=== PATIENT | female | born 1950 | race Caucasian/White ===

== ENCOUNTER → 2018-04-20 11:06 | Outpatient (CLI) | payer MEDICARE, BC, SELFPAY ==
--- NOTE | 2018-04-20 | DI.MG.S_ITS ---
BILATERAL DIGITAL SCREENING MAMMOGRAM 3D/2D WITH CAD: 04/20/2018 CLINICAL: Routine screening. Family history of breast cancer. Comparison is made to exams dated: 01/11/2014 mammogram - [facility], 04/02/2017 mammogram [facility], and 09/22/2012 mammogram - [facility]. The tissue of both breasts is heterogeneously dense. This may lower the sensitivity of mammography. Current study was also evaluated with a Computer Aided Detection (CAD) system. There is an asymmetry with calcifications in the right breast posterior depth outer region seen on the craniocaudal view only. No other significant masses, calcifications, or other findings are seen in either breast. IMPRESSION: INCOMPLETE: NEEDS ADDITIONAL IMAGING EVALUATION The asymmetry in the right breast is indeterminate. Magnification views as well as additional views with possible ultrasound are recommended. This exam was interpreted at Station ID: [id number]. NOTE: For mammograms, a report in lay terms will be sent to the patient. Approximately 15% of breast malignancies will not be visualized mammographically. In the management of a palpable breast mass, a negative mammogram must not discourage biopsy of a clinically suspicious lesion. Electronically Signed By: Ambrosio Saravia M.D. ecl/:04/21/2018 00:47:53 letter sent: Additional Imaging Needed ACR BI-RADS Category 0: Incomplete 3340F
== END ==
PROVIDERS: PCP Internal Medicine; Visit Provider Internal Medicine
DX: Z12.31 Encounter for screening mammogram for malignant neoplasm of breast (principal); Z80.3 Family history of malignant neoplasm of breast
CPT/HCPCS: 77063; 77067

== ENCOUNTER → 2018-05-09 09:18 | Outpatient (CLI) | payer MEDICARE, BC, SELFPAY ==
--- NOTE | 2018-05-09 | DI.MG.S_ITS ---
UNILATERAL RIGHT DIGITAL DIAGNOSTIC MAMMOGRAM 3D/2D WITH ADDITIONAL VIEWS: 05/09/2018 CLINICAL: Additional evaluation requested from prior study. Family history of breast cancer. Comparison is made to exams dated: 04/20/2018 mammogram, 04/02/2017 mammogram - [facility], and 01/11/2014 mammogram - [facility]. The tissue of the right breast is heterogeneously dense. This may lower the sensitivity of mammography. The asymmetry with calcifications in the right breast posterior depth outer region seen on the craniocaudal view only is not seen in additional views. No other significant masses or calcifications are seen in the breast. IMPRESSION: There is no mammographic evidence of malignancy. A 1 year screening mammogram is recommended. This exam was interpreted at Station ID: [id number]. NOTE: For mammograms, a report in lay terms will be sent to the patient. Approximately 15% of breast malignancies will not be visualized mammographically. In the management of a palpable breast mass, a negative mammogram must not discourage biopsy of a clinically suspicious lesion. Electronically Signed By: Brigitte Rios M.D. lk/:05/09/2018 10:05:45 letter sent: Normal Exam ACR BI-RADS Category 2: Benign Finding(s) 3342F
== END ==
PROVIDERS: PCP Internal Medicine; Visit Provider Internal Medicine
DX: R92.1 Mammographic calcification found on diagnostic imaging of breast (principal); Z80.3 Family history of malignant neoplasm of breast
CPT/HCPCS: 77065; G0279

== ENCOUNTER → 2019-06-21 09:48 | Outpatient (CLI) | payer MEDICARE, BC, SELFPAY ==
--- NOTE | 2019-06-21 | DI.MG.S_ITS ---
BILATERAL DIGITAL SCREENING MAMMOGRAM 3D/2D WITH CAD: 06/21/2019 CLINICAL: Routine screening. Family history of breast cancer. Comparison is made to exams dated: 05/09/2018 mammogram, 04/20/2018 mammogram, and 04/02/2017 mammogram - [facility]. The tissue of both breasts is heterogeneously dense. This may lower the sensitivity of mammography. Current study was also evaluated with a Computer Aided Detection (CAD) system. No significant masses, calcifications, or other findings are seen in either breast. There has been no significant interval change. IMPRESSION: NEGATIVE There is no mammographic evidence of malignancy. A 1 year screening mammogram is recommended. This exam was interpreted at Station ID: [id number]. NOTE: For mammograms, a report in lay terms will be sent to the patient. Approximately 15% of breast malignancies will not be visualized mammographically. In the management of a palpable breast mass, a negative mammogram must not discourage biopsy of a clinically suspicious lesion. Electronically Signed By: Álvaro manuel/carmen:06/21/2019 11:44:36 letter sent: Normal Exam ACR BI-RADS Category 1: Negative 3341F
== END ==
PROVIDERS: PCP Internal Medicine; Visit Provider Internal Medicine
DX: Z12.31 Encounter for screening mammogram for malignant neoplasm of breast (principal); M81.0 Age-related osteoporosis without current pathological fracture; Z78.0 Asymptomatic menopausal state; Z90.722 Acquired absence of ovaries, bilateral
CPT/HCPCS: 77063; 77067; 77080

== ENCOUNTER → 2019-08-01 09:33 | Outpatient (CLI) | payer MEDICARE, BC, SELFPAY ==
[2019-08-01 11:15] LABS: Calcium 10.3 mg/dL (8.4-10.2)
[2019-08-01 11:33] LABS: Vitamin D 25 Hydroxy (D3) 74.8 ng/mL (30.0-100.0)
== END ==
PROVIDERS: PCP Internal Medicine; Visit Provider Ophthalmology
DX: Z01.84 Encounter for antibody response examination (principal); E55.9 Vitamin D deficiency, unspecified
CPT/HCPCS: 36415; 82306; 82310; 86787

== ENCOUNTER → 2020-02-26 07:32 | Outpatient (CLI) | payer MEDICARE, BC, SELFPAY ==
[2020-02-26 08:44] LABS: Aspartate Aminotransferase 26 IU/L (14-36); BUN Creatinine Ratio 24.4 (6-22); Blood Urea Nitrogen 19 mg/dL (7-17); Calcium 10.1 mg/dL (8.4-10.2); Carbon Dioxide 29 mmol/L (22-32); Chloride 102 mmol/L (98-107); Cholesterol 217 mg/dL (140-199); Estimated Glomerular Filt Rate > 60.0 mL/min (>60); Glucose 125 mg/dL (80-110); HDL Cholesterol 63 mg/dL (40-60); HEMOLYSIS < 15 (0-50); LDL Cholesterol Calculated 138 mg/dL (<100); Sodium 138 mmol/L (137-145); Triglycerides 78 mg/dL (35-150)
[2020-02-26 09:15] LABS: TSH w/ Reflex to FT4 4.24 uIU/mL (0.47-4.68)
== END ==
PROVIDERS: PCP Internal Medicine; Referring Provider Internal Medicine; Visit Provider Internal Medicine
DX: E78.2 Mixed hyperlipidemia (principal); I10 Essential (primary) hypertension; M81.0 Age-related osteoporosis without current pathological fracture
CPT/HCPCS: 36415; 80048; 80061; 84443; 84450

== ENCOUNTER → 2020-06-25 10:00 | Outpatient (CLI) | payer MEDICARE, BC, SELFPAY ==
--- NOTE | 2020-06-25 10:03 | DI.MG.S_ITS ---
BILATERAL DIGITAL SCREENING MAMMOGRAM 3D/2D WITH CAD: 06/25/2020 CLINICAL: Routine screening. Family history of breast cancer. Comparison is made to exams dated: 06/21/2019 mammogram, 04/20/2018 mammogram, 04/02/2017 mammogram, and 05/09/2018 mammogram - [facility]. The tissue of both breasts is heterogeneously dense. This may lower the sensitivity of mammography. Current study was also evaluated with a Computer Aided Detection (CAD) system. No significant masses, calcifications, or other findings are seen in either breast. There has been no significant interval change. IMPRESSION: NEGATIVE There is no mammographic evidence of malignancy. A 1 year screening mammogram is recommended. This exam was interpreted at Station ID: [id number]. NOTE: For mammograms, a report in lay terms will be sent to the patient. Approximately 15% of breast malignancies will not be visualized mammographically. In the management of a palpable breast mass, a negative mammogram must not discourage biopsy of a clinically suspicious lesion. Electronically Signed By: Fredo pelaez/carmen:06/25/2020 12:36:14 letter sent: Normal Exam ACR BI-RADS Category 1: Negative 3341F
== END ==
PROVIDERS: PCP Internal Medicine; Referring Provider Internal Medicine; Visit Provider Internal Medicine
DX: Z12.31 Encounter for screening mammogram for malignant neoplasm of breast (principal); Z80.3 Family history of malignant neoplasm of breast
CPT/HCPCS: 77063; 77067

== ENCOUNTER → 2021-01-17 18:54 | Outpatient (ROUT) | payer MEDICARE, BC, SELFPAY ==
[2021-01-17 19:32] LABS: Aspartate Aminotransferase 25 IU/L (14-36); BUN Creatinine Ratio 22.5 (6-22); Blood Urea Nitrogen 20 mg/dL (7-17); Calcium 9.9 mg/dL (8.4-10.2); Carbon Dioxide 29 mmol/L (22-32); Chloride 105 mmol/L (98-107); Cholesterol 232 mg/dL (140-199); Estimated Glomerular Filt Rate > 60.0 mL/min (>60); Glucose 125 mg/dL (80-110); HDL Cholesterol 80 mg/dL (40-60); HEMOLYSIS < 15 (0-50); LDL Cholesterol Calculated 135 mg/dL (<100); Potassium 3.9 mmol/L (3.4-5.1); Sodium 142 mmol/L (137-145); Triglycerides 83 mg/dL (35-150)
== END ==
PROVIDERS: PCP Internal Medicine; Visit Provider Internal Medicine
DX: I10 Essential (primary) hypertension (principal); E78.2 Mixed hyperlipidemia
CPT/HCPCS: 80048; 80061; 84450

== ENCOUNTER → 2021-07-18 10:15 | Outpatient (CLI) | payer MEDICARE, BC, SELFPAY ==
--- NOTE | 2021-07-18 | DI.MG.S_ITS ---
BILATERAL DIGITAL SCREENING MAMMOGRAM 3D/2D WITH CAD: 07/18/2021 CLINICAL: Routine screening. Family history of breast cancer. Comparison is made to exams dated: 06/25/2020 mammogram, 06/21/2019 mammogram, and 04/20/2018 mammogram - [facility]. There are scattered fibroglandular elements in both breasts. Current study was also evaluated with a Computer Aided Detection (CAD) system. No significant masses, calcifications, or other findings are seen in either breast. There has been no significant interval change. IMPRESSION: NEGATIVE There is no mammographic evidence of malignancy. A 1 year screening mammogram is recommended. This exam was interpreted at Station ID: [id number]. NOTE: For mammograms, a report in lay terms will be sent to the patient. Approximately 15% of breast malignancies will not be visualized mammographically. In the management of a palpable breast mass, a negative mammogram must not discourage biopsy of a clinically suspicious lesion. Electronically Signed By: Lexie hernandez/carmen:07/18/2021 16:56:16 letter sent: Normal Exam ACR BI-RADS Category 1: Negative 3341F
--- NOTE | 2021-07-18 | DI.RAD.S_ITS ---
PROCEDURE: XR DEXA AXIAL SKELETON INDICATIONS: ROUTINE SCREENING COMPARISON: [facility], CR, XR DEXA AXIAL SKELETON, 06/21/2019, 10:34. FINDINGS: This blank DEXA report has been sent in error by the PACS system. The correct and complete report will be forthcoming in 1-2 days. Thank you for your patience and understanding. Dictated by: Phyllis Alfred MD, PhD on 07/18/2021 at 16:10 Approved by: Phyllis Alfred MD, PhD on 07/18/2021 at 16:10
== END ==
PROVIDERS: PCP Physician Assistant; Referring Provider Internal Medicine; Visit Provider Internal Medicine
DX: Z12.31 Encounter for screening mammogram for malignant neoplasm of breast (principal); Z80.3 Family history of malignant neoplasm of breast; Z13.820 Encounter for screening for osteoporosis; M81.0 Age-related osteoporosis without current pathological fracture; Z78.0 Asymptomatic menopausal state; Z90.722 Acquired absence of ovaries, bilateral
CPT/HCPCS: 77063; 77067; 77080

== ENCOUNTER → 2022-09-07 15:57 | Outpatient (CLI) | payer MEDICARE, BC, SELFPAY ==
--- NOTE | 2022-09-07 16:00 | DI.MG.S_ITS ---
BILATERAL DIGITAL SCREENING MAMMOGRAM 3D/2D WITH CAD: 09/07/2022 CLINICAL: Routine screening. Family history of breast cancer. Comparison is made to exams dated: 07/18/2021 mammogram, 06/25/2020 mammogram, and 06/21/2019 mammogram - [facility]. There are scattered areas of fibroglandular density in both breasts (category b / 25%-50% glandular tissue). Current study was also evaluated with a Computer Aided Detection (CAD) system. No significant masses, calcifications, or other findings are seen in either breast. There has been no significant interval change. IMPRESSION: NEGATIVE There is no mammographic evidence of malignancy. A 1 year screening mammogram is recommended. Based on the Tyrer Cuzick model (a risk assessment model) the patient's lifetime risk is 12.3% and her 10 year risk is 10.1%. According to the ACR, ACS, and NCCN guidelines, an annual breast MRI exam along with mammogram is recommended if the patient's lifetime risk is 20% or greater. This exam was interpreted at Station ID: [id number]. NOTE: For mammograms, a report in lay terms will be sent to the patient. Approximately 15% of breast malignancies will not be visualized mammographically. In the management of a palpable breast mass, a negative mammogram must not discourage biopsy of a clinically suspicious lesion. Electronically Signed By: Álvaro manuel/carmen:09/08/2022 07:55:03 letter sent: Normal Exam ACR BI-RADS Category 1: Negative 3341F
== END ==
PROVIDERS: PCP Internal Medicine; Referring Provider Internal Medicine; Visit Provider Internal Medicine
DX: Z12.31 Encounter for screening mammogram for malignant neoplasm of breast (principal); Z80.3 Family history of malignant neoplasm of breast
CPT/HCPCS: 77063; 77067

== ENCOUNTER → 2022-11-16 08:29 | Outpatient (CLI) | payer MEDICARE, BC, SELFPAY ==
[2022-11-16 09:12] LABS: Hemoglobin 13.1 g/dL (12.0-16.0); Mean Corpuscular HGB Conc 33.5 % (30-36); Mean Corpuscular Hemoglobin 31.4 PG (26-34); Mean Corpuscular Volume 93.7 fL (80-100); Platelet Count 317 X10^3/uL (150-400); Red Blood Cell Count 4.16 X10^6/uL (4.0-5.2); White Blood Cell Count 4.5 X10^3/uL (4.5-11.0)
[2022-11-16 09:43] LABS: Alanine Aminotransferase 25 IU/L (<35); Albumin 4.1 g/dL (3.5-5.0); Albumin Globulin Ratio 1.3 (1.0-2.8); Alkaline Phosphatase 90 U/L (38-126); Aspartate Aminotransferase 24 IU/L (14-36); BUN Creatinine Ratio 26.1 (6-22); Bilirubin Total 0.5 mg/dL (0.2-1.3); Blood Urea Nitrogen 18 mg/dL (7-17); Calcium 9.1 mg/dL (8.4-10.2); Carbon Dioxide 27 mmol/L (22-32); Chloride 103 mmol/L (98-107); Cholesterol 235 mg/dL (140-199); Estimated Glomerular Filt Rate > 60 mL/min (>60); Globulin 3.2 g/dL (1.7-4.1); Glucose 127 mg/dL (80-110); HDL Cholesterol 58 mg/dL (40-60); HEMOLYSIS < 15 (0-50); LDL Cholesterol Calculated 160 mg/dL (<100); Potassium 4.1 mmol/L (3.4-5.1); Sodium 137 mmol/L (137-145); Total Protein 7.3 g/dL (6.3-8.2); Triglycerides 83 mg/dL (35-150)
[2022-11-16 09:59] LABS: Vitamin D 25 Hydroxy (D3) 44.7 ng/mL (30.0-100.0)
[2022-11-16 10:13] LABS: TSH w/ Reflex to FT4 3.99 uIU/mL (0.47-4.68)
[2022-11-16 10:31] LABS: Vitamin B12 339 pg/mL (239-931)
== END ==
PROVIDERS: PCP Internal Medicine; Referring Provider Internal Medicine; Visit Provider Internal Medicine
DX: E55.9 Vitamin D deficiency, unspecified (principal); E78.2 Mixed hyperlipidemia; I10 Essential (primary) hypertension; M81.0 Age-related osteoporosis without current pathological fracture; E53.8 Deficiency of other specified B group vitamins
CPT/HCPCS: 36415; 80053; 80061; 82306; 82607; 84443; 85027

== ENCOUNTER 2022-12-29 06:39 | Day surgery (SDC) | payer MEDICARE, OTHER, SELFPAY ==
[2022-12-29 07:07] VITALS: BP 149/85; PULSE 69; RESP 17; TEMP 36.6; O2SAT 99; BMI 25.4
[2022-12-29] MEDS: LACTATED RINGERS 1,000 ML 120 ML IV (07:18)
--- NOTE | 2022-12-29 07:45 | PM.HP.1 ---
History of Present Illness History of Present Illness Date Patient Seen: 12/29/22 Time Patient Seen: 07:45 Chief complaint: Colonoscopy Narrative: The patient presents for colorectal screening. Personal history of colonic polyps. Last colonoscopy approximately 5 years ago. No personal or first-degree family history of colon cancer. On further history denies any recent gastrointestinal symptoms. No nausea, vomiting, abdominal pain, loss of appetite, unexplained weight loss, change in bowel habits, or blood per rectum. [facility] Medical History (Updated 11/11/22 @ 09:48 by Ernesto Stallings MD) Age-related osteoporosis without current pathological fracture Allergic rhinitis Cataracts, bilateral (~2019) Chicken pox Colon polyps (~2007) Essential hypertension Fibroids (~2013) History of colonic polyps Human papilloma virus (~2009) Measles Mixed hyperlipidemia Retinal tear (~2019) Skin cancer (~2014) Surgical History Anesthesia History of hysterectomy (~2019) Family History Father Diabetes mellitus History of heart disease Hypertension Hyperlipidemia Mother Hyperlipidemia Hypertension Alzheimer's disease Brother Diabetes mellitus Hyperlipidemia Hypertension Mental health problem Brother Diabetes mellitus Hyperlipidemia Hypertension Brother Hyperlipidemia Sister Breast cancer Diabetes mellitus Hyperlipidemia Hypertension Social History details: Partner (Jeanmarie), , 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, retired dental hygienist household members: spouse and friend(s) Smoking Status: Never smoker alcohol intake: current Meds Home Medications and Allergies Home Medications Medication Instructions Recorded Confirmed Type alendronate 70 mg tablet 70 mg PO QWEEK #12 tabs 11/11/22 12/29/22 Rx atorvastatin 10 mg tablet 10 mg PO DAILY #90 tabs 11/11/22 12/29/22 Rx losartan 50 mg tablet 50 mg PO DAILY #90 tabs 11/11/22 12/29/22 Rx Allergies Allergy/AdvReac Type Severity Reaction Status Date / Time Sulfa (Sulfonamide Allergy Severe Rash Verified 11/11/22 09:15 Antibiotics) Exam Vital Signs (past 8 hours): - 12/29/22 07:07 Temperature 98 F Pulse Rate 69 Respiratory Rate 17 Blood Pressure 149/85 H Pulse Oximetry 99 Oxygen Delivery Method Room Air Oxygen Delivery Method Room Air Narrative Exam Narrative: General adult woman alert oriented no acute distress Assessment & Plan Assessment & Plan narrative: The patient requires colorectal screening and colonoscopy is recommended. Technical details were discussed. Risks, benefits, alternatives explained. Risks including but not limited to myocardial infarction, aspiration, bleeding, pain, missed lesion, incomplete examination, need for further radiographic studies, colonic perforation, and need for major abdominal surgery were discussed. All questions were answered to their satisfaction, and they are in agreement with this plan.
[2022-12-29 08:09] VITALS: BP 116/75; PULSE 64; RESP 18; TEMP 36.4; O2SAT 96
[2022-12-29 08:14] VITALS: BP 112/71; PULSE 61; RESP 20; O2SAT 95
--- NOTE | 2022-12-29 08:17 | PM.OP.COLON ---
Operative Date/Time/Diagnoses Date of procedure: 12/29/22 Time of procedure: 08:17 Pre-op diagnosis: Personal history of polyps Post-op diagnosis: same Procedure & Clinicians Study performed: Colonoscopy Same procedure as scheduled: Yes Indications: Personal history of polyps Colorectal screening Surgeon: Jostin Augustin Procedure Notes Procedure in detail: The history and physical was performed/updated and the patient is ASA class is 2. The procedure was discussed in detail with the patient. Potential risks complications including infection, bleeding, missed diagnosis, perforation, need for surgery, and were explained. Their questions were answered and informed consent was obtained. Patient was brought to the procedure room and placed standard monitoring equipment. The patient's vital signs were monitored continuously throughout the entire procedure. Prior to starting time-out was performed. The patient was placed in the left lateral recumbent position. Procedural sedation was administered by anesthesia. Examination began with a thorough inspection of the perianal area there was no evidence of fissures, fistulae, external hemorrhoids or cutaneous malignancy. The colonoscopy scope was then placed into the anal canal and was advanced to the cecum, which was identified by the ileocecal valve, the appendiceal orifice and the confluence of the taenia. The scope was then slowly withdrawn examining colon thoroughly in all directions, irrigating it of any residual stool. Colon is free of masses and polyps. Moderate diverticulosis of sigmoid colon Internal hemorrhoids on retroflexion within the rectum The patient tolerated the procedure well. They will be discharged once criteria are met. The prep was of good/excellent quality. The withdrawl time was 6 minutes. Specimen(s): none sent Impression: Normal colonoscopy Post-procedure Recommendations: High fiber diet Plan for aftercare: No further colonoscopy is likely necessary Disposition: same day surgery
[2022-12-29 08:20] VITALS: BP 124/80; PULSE 691; RESP 5; O2SAT 96
[2022-12-29 08:22] VITALS: BP 124/81; PULSE 65; RESP 14; TEMP 36.2; O2SAT 97
== END 2022-12-29 08:35 | disposition home or self-care (01) ==
PROVIDERS: PCP Internal Medicine; Referring Provider Surgery; Visit Provider Surgery
PROC: 0DJD8ZZ Inspection of Lower Intestinal Tract, Via Natural or Artificial Opening Endoscopic (ICD-10-PCS; CPT 45378; principal; 2022-12-29 07:45)
DX: Z12.11 Encounter for screening for malignant neoplasm of colon (principal); Z86.010 Personal history of colon polyps; K57.30 Diverticulosis of large intestine without perforation or abscess without bleeding; K64.8 Other hemorrhoids
CPT/HCPCS: G0105; J2704

== ENCOUNTER → 2023-09-08 08:14 | Outpatient (CLI) | payer MEDICARE, OTHER, SELFPAY ==
--- NOTE | 2023-09-08 08:16 | DI.MG.S_ITS ---
BILATERAL DIGITAL SCREENING MAMMOGRAM 3D/2D WITH CAD: 09/08/2023 CLINICAL: Routine screening. Family history of breast cancer. Comparison is made to exams dated: 09/07/2022 mammogram, 07/18/2021 mammogram, 06/25/2020 mammogram, and 06/21/2019 mammogram - [facility]. There are scattered areas of fibroglandular density in both breasts (category b / 25%-50% glandular tissue). Current study was also evaluated with a Computer Aided Detection (CAD) system. No significant masses, calcifications, or other findings are seen in either breast. There has been no significant interval change. IMPRESSION: NEGATIVE There is no mammographic evidence of malignancy. A 1 year screening mammogram is recommended. Based on the Tyrer Cuzick model (a risk assessment model) the patient's lifetime risk is 11.5% and her 10 year risk is 10.4%. According to the ACR, ACS, and NCCN guidelines, an annual breast MRI exam along with mammogram is recommended if the patient's lifetime risk is 20% or greater. This exam was interpreted at Station ID: [id number]. NOTE: For mammograms, a report in lay terms will be sent to the patient. Approximately 15% of breast malignancies will not be visualized mammographically. In the management of a palpable breast mass, a negative mammogram must not discourage biopsy of a clinically suspicious lesion. Electronically Signed By: Roger watts/carmen:09/08/2023 13:58:26 letter sent: Normal Exam ACR BI-RADS Category 1: Negative 3341F
== END ==
LOC: MAMMO 08:15
PROVIDERS: PCP Internal Medicine; Referring Provider Internal Medicine; Visit Provider Internal Medicine
DX: Z12.31 Encounter for screening mammogram for malignant neoplasm of breast (principal); R92.323 Mammographic fibroglandular density, bilateral breasts
CPT/HCPCS: 77063; 77067

== ENCOUNTER → 2023-11-15 09:40 | Outpatient (CLI) | payer MEDICARE, OTHER, SELFPAY ==
[2023-11-15 11:14] LABS: Hemoglobin A1C% w Est Avg Glu 7.4 % (4.0-6.0)
[2023-11-15 11:55] LABS: Aspartate Aminotransferase 52 IU/L (14-36); BUN Creatinine Ratio 15.5 (6-22); Blood Urea Nitrogen 11 mg/dL (7-17); Calcium 9.2 mg/dL (8.4-10.2); Carbon Dioxide 29 mmol/L (22-32); Chloride 106 mmol/L (98-107); Cholesterol 188 mg/dL (140-199); Estimated Glomerular Filt Rate > 60 mL/min (>60); Glucose 124 mg/dL (80-110); HDL Cholesterol 61 mg/dL (40-60); HEMOLYSIS < 15 (0-50); LDL Cholesterol Calculated 110 mg/dL (<100); Potassium 4.1 mmol/L (3.4-5.1); Sodium 140 mmol/L (137-145); Triglycerides 84 mg/dL (35-150)
== END ==
PROVIDERS: PCP Internal Medicine; Referring Provider Internal Medicine; Visit Provider Internal Medicine
DX: R73.01 Impaired fasting glucose (principal); I10 Essential (primary) hypertension; E78.2 Mixed hyperlipidemia
CPT/HCPCS: 36415; 80048; 80061; 83036; 84450

== ENCOUNTER → 2024-04-14 07:07 | Outpatient (CLI) | payer MEDICARE, OTHER, SELFPAY ==
[2024-04-14 07:56] LABS: Hemoglobin A1C% w Est Avg Glu 7.2 % (4.0-6.0)
[2024-04-14 08:26] LABS: Alanine Aminotransferase 30 IU/L (<35); Albumin 4.3 g/dL (3.5-5.0); Albumin Globulin Ratio 1.7 (1.0-2.8); Alkaline Phosphatase 99 U/L (38-126); Aspartate Aminotransferase 27 IU/L (14-36); Bilirubin Total 0.7 mg/dL (0.2-1.3); Bilirubin Unconjugated 0.3 mg/dL (0.0-1.1); Globulin 2.5 g/dL (1.7-4.1); Glucose 170 mg/dL (80-110); HEMOLYSIS < 15 (0-50); Total Protein 6.8 g/dL (6.3-8.2)
== END ==
PROVIDERS: PCP Internal Medicine; Referring Provider Internal Medicine; Visit Provider Internal Medicine
DX: E11.69 Type 2 diabetes mellitus with other specified complication (principal); E78.5 Hyperlipidemia, unspecified; R79.89 Other specified abnormal findings of blood chemistry
CPT/HCPCS: 36415; 80076; 82947; 83036

== ENCOUNTER → 2024-06-28 09:45 | Outpatient (CLI) | payer MEDICARE, OTHER, SELFPAY ==
--- NOTE | 2024-06-28 10:04 | DIAB.MNT ---
Initial Diabetes Medical Nutrition Therapy Assessment Name: Karo Noonan Date: 06/28/24 Time: Dx: Type II Diabetes Provider: Chandrakant Preferred Learning Style: Doing/Listening/Reading/Watching Cristin presents for initial visit. Newly diagnosed with T2Dm in 11/2023.Endorses FH of T2Dm with two siblings and her father. States she has been trying to avoid this diagnosis for 20 years, but is not surprised by recent hgA1c. Reports being quite active and eating very balanced. Recently started Metformin 500mg BID. No side effects. Interested in checking her BG for symptom numbers. States she sometimes feels a little unbalanced or foggy since starting Metformin. States a little cheese or snack helps. Mildly low BG? Endorses added stress over the last few years with partner having dementia. Tearful today about it. Manages stress with walking. Diet Recall: 6a: coffee with cream no sugar 8a: plain vietnamese yogurt with half banana 12p: half tuna sandwich on croissant OR cottage cheese with veg and balsamic glaze 2p: 2 chocolate (4g CHO) with cheese OR 1 satsuma orange 5p: protein with 1/2c potatoes with veggies 6p: ice cream x 2 spoonfuls wine 5oz 2-3x per week water Fish 2x per week Challenges when eating out (3x per week). Eats half portions and usually orders veggies. Anthropometrics: Ht: 5.5 Wt: 132# 04/26/24 Physical Activity: Walks [employer] with her dog daily 1-2x per day. Resistance training 5x per week in the morning (squats, lunges, bands, free weights) x 10 mins. Self-Monitoring Blood Glucose: No supplies. Feels she may check too often, but would like to know symptom numbers. Also may be beneficial to check a few fastings. Diabetes Medications: 500mg Metformin BID Pertinent Labs: hgA1c: 7.4% 11/2023 7.2% 03/2024 Past Medical History: (Last Updated 04/26/24 @ 07:26 by Ernesto Stallings MD) Age-related osteoporosis without current pathological fracture Allergic rhinitis Cataracts, bilateral (~2019) Chicken pox 1950's Colon polyps (~2007) DM type 2 with diabetic dyslipidemia Do not resuscitate Elevated LFTs Essential hypertension Fibroids (~2013) History of colonic polyps Human papilloma virus (~2009) Measles Child Mixed hyperlipidemia Retinal tear (~2019) Skin cancer (~2014) Nutrition Rx: Carbohydrates: Meal:30g Snack:15-30g Nutrition Diagnosis: - Food and nutrition knowledge deficit r/t new T2DM dx aeb hgA1c and pt report Intervention: This participant was very receptive. Provided appropriate educational handouts. Discussed the following topics: Completed intake assessment. Discussed barriers to care. Pathophysiology of T2DM HgA1c, its correlation to blood glucose numbers, and rationale for goal Option for self-monitoring, how often, and when to check. Suggested checking at different times and for symptom number Low BG s/s and tx (for her just a snack is needed likely) Plate Method, impact of macronutrients on blood sugar, meal timing, carbohydrate counting, pairing macronutrients and spreading out carbohydrates for better blood glucose management Recommended servings for carbohydrates at meals and snacks Heart health nutrition Stress management and impact on BG Role of physical activity and following provider guidelines for safety Created SMART goals for patient self-care and success. Goals: Check a few BG and write down Check label for total CHO make some time for yourself Follow-up: FLACO MOORE follow-up in 3-4 weeks to check on BG checks, answer questions, and provide some resources (ADA, ADCES, etc). RD messaged PCP team for meter and supplies rx per pt req. Lona Gooden RDN, CDCES Certified Diabetes Care and [employer] Shop Tester P: [phone] Thank you for this referral
== END ==
PROVIDERS: PCP Internal Medicine; Referring Provider Internal Medicine
DX: E11.69 Type 2 diabetes mellitus with other specified complication (principal); E78.5 Hyperlipidemia, unspecified; Z79.84 Long term (current) use of oral hypoglycemic drugs; Z71.3 Dietary counseling and surveillance
CPT/HCPCS: 97802

== ENCOUNTER → 2024-08-21 07:25 | Outpatient (CLI) | payer MEDICARE, OTHER, SELFPAY ==
[2024-08-21 08:43] LABS: Hemoglobin A1C% w Est Avg Glu 6.7 % (4.0-6.0)
[2024-08-21 09:01] LABS: Aspartate Aminotransferase 27 IU/L (14-36); BUN Creatinine Ratio 30.7 (6-22); Blood Urea Nitrogen 23 mg/dL (7-17); Calcium 9.7 mg/dL (8.4-10.2); Carbon Dioxide 28 mmol/L (22-32); Chloride 103 mmol/L (98-107); Cholesterol 230 mg/dL (140-199); Estimated Glomerular Filt Rate > 60 mL/min (>60); Glucose 124 mg/dL (80-110); HDL Cholesterol 68 mg/dL (40-60); HEMOLYSIS < 15 (0-50); LDL Cholesterol Calculated 148 mg/dL (<100); Potassium 4.7 mmol/L (3.4-5.1); Sodium 138 mmol/L (137-145); Triglycerides 72 mg/dL (35-150)
[2024-08-21 09:40] LABS: Creatinine Urine Random 76.84 mg/dL
[2024-08-21 09:46] LABS: Microalbumin Urine Random < 0.6 mg/dL (0-1.6)
== END ==
PROVIDERS: PCP Internal Medicine; Referring Provider Internal Medicine; Visit Provider Internal Medicine
DX: E11.69 Type 2 diabetes mellitus with other specified complication (principal); E78.5 Hyperlipidemia, unspecified; E78.2 Mixed hyperlipidemia
CPT/HCPCS: 36415; 80048; 80061; 82043; 82570; 83036; 84450

== ENCOUNTER → 2024-09-06 13:51 | Outpatient (CLI) | payer MEDICARE, OTHER, SELFPAY ==
--- NOTE | 2024-09-29 17:00 | DIAB.MNTFU ---
Follow-up Diabetes Medical Nutrition Therapy Assessment Name: Karo Noonan Date: 09/06/24 Time: 2-245p Dx: Type II Diabetes Cristin presents for follow-up visit. Newly diagnosed with T2Dm in 11/2023.Endorses FH of T2Dm with two siblings and her father. States she has been trying to avoid this diagnosis for 20 years, but is not surprised by recent hgA1c. No longer feeling lows. Recent lab work indicates elevated LDL. States she may discuss with PCP just increasing statin vs making diet chagnes. 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 Diet Recall: 6a: coffee with cream no sugar 8a: plain kazakh yogurt with half banana 12p: half tuna sandwich on croissant OR cottage cheese with veg and balsamic glaze 2p:nuts and cheese 5p: protein with 1/2c rice with veggies OR protein, vg, 1/2c corn and avocado sn: chocolate covered berries x 2 wine 5oz 2-3x per week water Fish 2x per week Reduced cheese intake and increased nuts reported Anthropometrics: Ht: 5.5 Wt: 125# reported 132# 04/26/24 Physical Activity: Walks [employer] [address] with her dog daily 1-2x per day. Resistance training 5x per week in the morning (squats, lunges, bands, free weights) x 10 mins. Self-Monitoring Blood Glucose: FB-125mg/dl in goal Diabetes Medications: 500mg Metformin BID Pertinent Labs: hgA1c: 7.4% 11/2023 7.2% 03/2024 6.7% 08/2024 Past Medical History: (Last Updated 04/26/24 @ 07:26 by Ernesto Stallings MD) Age-related osteoporosis without current pathological fracture Allergic rhinitis Cataracts, bilateral (~2019) Chicken pox 1950's Colon polyps (~2007) DM type 2 with diabetic dyslipidemia Do not resuscitate Elevated LFTs Essential hypertension Fibroids (~2013) History of colonic polyps Human papilloma virus (~2009) Measles Child Mixed hyperlipidemia Retinal tear (~2019) Skin cancer (~2014) Nutrition Rx: Carbohydrates: Meal:30g Snack:15-30g Nutrition Diagnosis: - Food and nutrition knowledge deficit r/t new T2DM dx aeb hgA1c and pt report - improved - Food and nutrition related knowledge deficit r/t needing MNT for cholesterol management aeb pt report and recent LDL 148- new Intervention: This participant was very receptive. Provided appropriate educational handouts. Discussed the following topics: Review of fats and fiber nutrition Encouraged physical activity Determined types of fiber she enjoys and ways to increase intake Created SMART goals for patient self-care and success. Goals: Check a few BG and write down- met Check label for total CHO- met make some time for yourself- met Try flaxseed or hemp hearts - new Follow-up: FLACO MOORE follow-up prn per pt request at this time. Lona Gooden RDN, OSCAR Certified Diabetes Care and [employer] Teacher P: [phone] Thank you for this referral
== END ==
PROVIDERS: PCP Internal Medicine; Referring Provider Internal Medicine
DX: E11.69 Type 2 diabetes mellitus with other specified complication (principal); E78.5 Hyperlipidemia, unspecified; Z83.3 Family history of diabetes mellitus; Z79.85 Long-term (current) use of injectable non-insulin antidiabetic drugs; Z71.3 Dietary counseling and surveillance
CPT/HCPCS: 97803

== ENCOUNTER → 2024-09-24 08:21 | Outpatient (CLI) | payer MEDICARE, OTHER, SELFPAY ==
--- NOTE | 2024-09-24 08:24 | DI.MG.S_ITS ---
BILATERAL DIGITAL SCREENING MAMMOGRAM 3D/2D WITH CAD: 09/24/2024 CLINICAL: Routine screening. Family history of breast cancer. Comparison is made to exams dated: 09/08/2023 mammogram, 09/07/2022 mammogram, and 07/18/2021 mammogram - [facility]. There are scattered areas of fibroglandular density (category b / 25%-50% glandular tissue). Current study was also evaluated with a Computer Aided Detection (CAD) system. No significant masses, calcifications, or other findings are seen in either breast. There has been no significant interval change. IMPRESSION: NEGATIVE There is no mammographic evidence of malignancy. A 1 year screening mammogram is recommended. Based on the Tyrer Cuzick model (a risk assessment model) the patient's lifetime risk is 10.7% and her 10 year risk is 10.7%. According to the ACR, ACS, and NCCN guidelines, an annual breast MRI exam along with mammogram is recommended if the patient's lifetime risk is 20% or greater. This exam was interpreted at Station ID: [id number]. NOTE: For mammograms, a report in lay terms will be sent to the patient. Approximately 15% of breast malignancies will not be visualized mammographically. In the management of a palpable breast mass, a negative mammogram must not discourage biopsy of a clinically suspicious lesion. Electronically Signed By: Álvaro manuel/carmen:09/25/2024 08:26:23 letter sent: Normal Exam ACR BI-RADS Category 1: Negative
== END ==
PROVIDERS: PCP Internal Medicine; Referring Provider Internal Medicine; Visit Provider Internal Medicine
DX: Z12.31 Encounter for screening mammogram for malignant neoplasm of breast (principal); Z80.3 Family history of malignant neoplasm of breast
CPT/HCPCS: 77063; 77067

== ENCOUNTER → 2024-11-20 06:52 | Outpatient (CLI) | payer MEDICARE, OTHER, SELFPAY ==
[2024-11-20 07:54] LABS: Hemoglobin A1C% w Est Avg Glu 6.5 % (4.0-6.0)
[2024-11-20 07:58] LABS: Aspartate Aminotransferase 31 IU/L (14-36); BUN Creatinine Ratio 31.6 (6-22); Blood Urea Nitrogen 24 mg/dL (7-17); Calcium 9.7 mg/dL (8.4-10.2); Carbon Dioxide 28 mmol/L (22-32); Chloride 102 mmol/L (98-107); Cholesterol 219 mg/dL (140-199); Estimated Glomerular Filt Rate > 60 mL/min (>60); Glucose 135 mg/dL (80-110); HDL Cholesterol 61 mg/dL (40-60); HEMOLYSIS < 15 (0-50); LDL Cholesterol Calculated 146 mg/dL (<100); Potassium 4.7 mmol/L (3.4-5.1); Sodium 139 mmol/L (137-145); Triglycerides 58 mg/dL (35-150)
== END ==
PROVIDERS: PCP Internal Medicine; Referring Provider Internal Medicine; Visit Provider Internal Medicine
DX: E11.69 Type 2 diabetes mellitus with other specified complication (principal); E78.5 Hyperlipidemia, unspecified; E78.2 Mixed hyperlipidemia
CPT/HCPCS: 36415; 80048; 80061; 83036; 84450

== ENCOUNTER → 2024-12-01 12:47 | Outpatient (CLI) | payer MEDICARE, OTHER, SELFPAY ==
--- NOTE | 2024-12-01 12:49 | DI.RAD.S_ITS ---
PROCEDURE: XR DEXA AXIAL SKELETON INDICATIONS: osteoporosis COMPARISON: [facility], [place], XR DEXA AXIAL SKELETON, 07/18/2021, 11:13. [facility], CR, XR DEXA AXIAL SKELETON, 06/21/2019, 10:34. FINDINGS: Lumbar Spine: Bone mineral density 0.754 g/cm2, T score -2.7, previously -2.3. Left Femoral Neck: Bone mineral density 0.636 g/cm2, T score -1.9. Left Hip: Bone mineral density 0.82 to g/cm2, T score -1.0, previously -1.0. Fracture Risk Calculation (when applicable): 10-year fracture risk of a major osteoporotic fracture 23 percent and of a hip fracture 13 percent. (T score greater or equal to -1.0 to: NORMAL) (T score from -1.1 to -2.4: OSTEOPENIA) (T score less than or equal to -2.5: OSTEOPOROSIS) IMPRESSION: 1. Osteoporosis of the lumbar spine. 2. Osteopenia of the left femoral neck. 3. Normal bone density of the left hip, although borderline osteopenic. Follow-up guidelines as follows: Osteoporosis: Consider a repeat DEXA and Vertebral Fracture Assessment (VFA) exam in 2 years or sooner if medically necessary, to reassess this patient's status. Osteopenia: Consider a repeat DEXA in 2-3 years to reassess this patient's status, or if there is a new clinical indication. Normal: Consider a repeat DEXA in 5 years or sooner, or if there is a new clinical indication. All treatment decisions require clinical judgment and consideration of individual patient factors, including patient preferences, comorbidities, previous drug use, risk factors not captured in the FRAX model (e.g., frailty, falls, vitamin D deficiency, increased bone turnover, interval significant decline in bone density ) and possible under- or over-estimation of fracture risk by FRAX. In addition, the NOF Guide recommends that FDA-approved medical therapies be considered in postmenopausal women and men age >= 50 years with a: * Hip or vertebral (clinical or morphometric) fracture * T-score of <=-2.5 at the spine or hip * Ten-year fracture probability by FRAX of >= 3% for hip fracture or >=20% for major osteoporotic fracture. Dictated by: Saroj Sweeney M.D. on 12/01/2024 at 15:44 Approved by: Saroj Sweeney M.D. on 12/01/2024 at 15:46
== END ==
PROVIDERS: PCP Internal Medicine; Referring Provider Internal Medicine; Visit Provider Internal Medicine
DX: M81.0 Age-related osteoporosis without current pathological fracture (principal); M85.89 Other specified disorders of bone density and structure, multiple sites
CPT/HCPCS: 77080

== ENCOUNTER → 2025-06-18 07:42 | Outpatient (CLI) | payer MEDICARE, OTHER, SELFPAY ==
[2025-06-18 08:50] LABS: Hemoglobin A1C% w Est Avg Glu 6.8 % (4.0-6.0)
[2025-06-18 08:56] LABS: Alanine Aminotransferase 27 IU/L (<35); Albumin 4.4 g/dL (3.5-5.0); Albumin Globulin Ratio 1.7 (1.0-2.8); Alkaline Phosphatase 76 U/L (38-126); Blood Urea Nitrogen 18 mg/dL (7-17); Calcium 9.2 mg/dL (8.4-10.2); Carbon Dioxide 25 mmol/L (22-32); Chloride 102 mmol/L (98-107); Cholesterol 207 mg/dL (140-199); Estimated Glomerular Filt Rate > 60 mL/min (>60); Globulin 2.6 g/dL (1.7-4.1); Glucose 130 mg/dL (70-99); HDL Cholesterol 70 mg/dL (40-60); HEMOLYSIS < 15 (0-50); Potassium 4.5 mmol/L (3.4-5.1); Sodium 136 mmol/L (137-145); Total Protein 7.0 g/dL (6.3-8.2); Triglycerides 57 mg/dL (35-150)
== END ==
PROVIDERS: PCP Internal Medicine; Referring Provider Internal Medicine; Visit Provider Internal Medicine
DX: E11.69 Type 2 diabetes mellitus with other specified complication (principal); E78.5 Hyperlipidemia, unspecified; E78.2 Mixed hyperlipidemia
CPT/HCPCS: 36415; 80053; 80061; 83036